=== PATIENT | female | born 1970 | race Caucasian/White ===

== ENCOUNTER 2016-11-06 07:09 | Emergency (ER) | payer OTHER ==
[2016-11-06 07:15] VITALS: BP 117/64
--- NOTE | 2016-11-06 07:26 | UC ---
Throat Pain/Nasal Gentry HPI - HPI Summary HPI Summary: ONSET OF ST, FATIGUE, SUBJECTIVE FEVER, SWOLLEN GLANDS YESTERDAY. ALSO REPORTS MILD COUGH AND CONGESTION. GRANDSON DX WITH MONO YESTERDAY. - History of Current Complaint Chief Complaint: UCGeneralIllness Stated Complaint: SORE THROAT Time Seen by Provider: 11/06/16 07:19 Hx Obtained From: Patient Hx Last Menstrual Period: 10/08/16 Onset/Duration: Gradual Onset, Lasting Hours, Still Present Severity: Moderate Pain Intensity: 6 Pain Scale Used: 0-10 Numeric Cough: Nonproductive Associated Signs & Symptoms: Positive: Nasal Discharge, Fever - Allergies/Home Medications Allergies/Adverse Reactions: Allergies Allergy/AdvReac Type Severity Reaction Status Date / Time No Known Allergies Allergy Verified 11/06/16 07:19 PMH/Surg Hx/FS Hx/Imm Hx Cardiovascular History: Hypertension - Surgical History Surgical History: Yes Surgery Procedure, Year, and Place: 8 surgeries to right knee - Family History Known Family History: Positive: Hypertension Family History: CANCER - SON - Social History Alcohol Use: Occasionally Substance Use Type: None Smoking Status (MU): Current Every Day Smoker Review of Systems Constitutional: Fever, Fatigue ENT: Sore Throat, Nasal Discharge Respiratory: Cough Cardiovascular: Negative Gastrointestinal: Negative Genitourinary: Negative Neurological: Headache All Other Systems Reviewed And Are Negative: Yes Physical Exam Triage Information Reviewed: Yes Appearance: No Pain Distress, Well-Nourished, Ill-Appearing - MILD Vital Signs: Initial Vital Signs Temp 97.1 F 11/06/16 07:11 Pulse 59 11/06/16 07:11 Resp 16 11/06/16 07:11 BP 117/64 11/06/16 07:11 Pulse Ox 99 11/06/16 07:11 Vital Signs Reviewed: Yes Eyes: Positive: Conjunctiva Clear ENT: Positive: Hearing grossly normal, Pharyngeal erythema, TMs normal. Negative: Tonsillar swelling, Tonsillar exudate, Muffled/hoarse voice Neck: Positive: Supple, Tenderness @ - SPFL CERVICAL LAD, Enlarged Nodes @ - SPFL CERVICAL LAD Respiratory Exam: Normal Cardiovascular Exam: Normal Abdomen Description: Positive: Soft Musculoskeletal: Positive: No Edema Neurological: Positive: Alert Psychological: Positive: Age Appropriate Behavior Skin: Negative: rashes Diagnostics - Laboratory Diagnostic Studies Completed/Ordered: RAPID STREP NEGATIVE Throat Pain/Nasal Course/Dx - Differential Dx/Diagnosis Provider Diagnoses: ACUTE PHARYNGITIS Discharge - Discharge Plan Condition: Stable Disposition: HOME Patient Education Materials: Pharyngitis (ED) Referrals: Dino Jean MD [Primary Care Provider] - If Needed Additional Instructions: RAPID STREP NEGATIVE. LIKELY VIRAL ETIOLOGY OF ILLNESS. REST, HYDRATE, OTC MEDS NEEDED FOR DISCOMFORT. SEEK FOLLOW-UP IF YOU ARE NOT IMPROVING EXPECTED.
== END 2016-11-06 07:48 | disposition home or self-care (01) ==
LOC: UCEAST 07:09
DX: J02.9 Acute pharyngitis, unspecified (principal); R05 Cough; R09.81 Nasal congestion; R51 Headache; I10 Essential (primary) hypertension; Z72.0 Tobacco use
CPT/HCPCS: 87651; 99211; G0463

== ENCOUNTER 2018-12-25 07:12 | Emergency (ER) | payer OTHER ==
[2018-12-25 07:30] VITALS: BP 159/97
--- NOTE | 2018-12-25 07:59 | UC ---
Skin Complaint HPI - HPI Summary HPI Summary: She woke up on Tuesday with a lump high and her left ear and on the back of her head. It was painful and tender and is giving her headache. She states that she has a colleague at work who has the same problem and is being treated for Lyme. She did have a tick on her right volar forearm about 2 weeks ago. She describes it as small and difficult to dig out. She did not have any rash and has not had any arthralgias, myalgias or fevers. - History of Current Complaint Chief Complaint: UCSkin Time Seen by Provider: 12/25/18 07:46 Stated Complaint: LUMP BEHIND EAR Hx Obtained From: Patient Hx Last Menstrual Period: 10/08/16 Onset/Duration: Sudden Onset Skin Exposure Onset/Duration: Days Ago Onset Severity: Moderate Current Severity: Severe Pain Intensity: 9 Location: Discrete - Left occipital area Aggravating Factor(s): Touch Alleviating Factor(s): Nothing Associated Signs & Symptoms: Positive: Negative Related History: Insect Bite/Sting - Allergy/Home Medications Allergies/Adverse Reactions: Allergies Allergy/AdvReac Type Severity Reaction Status Date / Time diazepam [From Valium] Allergy Altered Verified 12/25/18 07:31 Mental Status Home Medications: Home Medications Acetaminophen [Mapap] 500 mg PO SEE INSTRUCTIONS PRN 12/25/18 [History Confirmed 12/25/18] PMH/Surg Hx/FS Hx/Imm Hx Previously Healthy: Yes - Surgical History Surgical History: Yes Surgery Procedure, Year, and Place: 8 surgeries to right knee - Family History Known Family History: Positive: Hypertension Family History: CANCER - SON - Social History Alcohol Use: Occasionally Substance Use Type: None Smoking Status (MU): Current Every Day Smoker Review of Systems All Other Systems Reviewed And Are Negative: Yes Physical Exam - Summary Physical Exam Summary: She is tender in her left occiput. I don't really feel any lymphadenopathy. I don't see any rash. She has no meningeal signs. She is nontoxic in appearance with stable vitals. Triage Information Reviewed: Yes Appearance: Well-Appearing, Thin Vital Signs: Initial Vital Signs Temp 96.9 F 12/25/18 07:25 Pulse 69 12/25/18 07:25 Resp 18 12/25/18 07:25 BP 159/97 12/25/18 07:25 Pulse Ox 97 12/25/18 07:25 Vital Signs Reviewed: Yes ENT Exam: Other - Tender in the left occiput Neck exam: Normal Neck: Positive: Supple, No Lymphadenopathy. Negative: Nuchal Rigidity Course/Dx - Course Course Of Treatment: I have no idea if this is Lyme. Certainly not classic she would like to be treated for this. I am concerned about her headache if it is Lyme and recommended she follow up in the ED to consider lumbar puncture. We discussed doxycycline. She just wants to be treated with antibiotics at this time and does not want to go to the emergency department. - Diagnoses Provider Diagnosis: Head ache Discharge ED - Sign-Out/Discharge Documenting (check all that apply): Patient Departure All imaging exams completed and their final reports reviewed: No Studies - Discharge Plan Condition: Stable Disposition: HOME Patient Education Materials: Lyme Disease (ED), Acute Headache (ED) Referrals: Lloyd Correa MD [Primary Care Provider] - Additional Instructions: If her headache does not resolve in the next day or so please go to the emergency department for further evaluation. - Billing Disposition and Condition Condition: STABLE Disposition: Home
[2018-12-27 00:05] LABS: Anaplasma phagocytophilium <1:64 titer (<1:64); Ehrlichia chaffeensis IgG AB <1:64 titer (<1:64); Lyme Disease Serology Negative (Negative)
--- NOTE | 2018-12-27 07:34 | UC ---
- Progress Note Progress Note: Please advise patient that lab results show negative Lyme serology, and negative tick borne panel (Anaplasma, Babesia and Ehrlichiosis). Course/Dx - Diagnoses Provider Diagnoses: Head ache Discharge ED - Sign-Out/Discharge Documenting (check all that apply): Patient Departure All imaging exams completed and their final reports reviewed: No Studies - Discharge Plan Condition: Stable Disposition: HOME Prescriptions: DOXYcycline CAP(*) [DOXYcycline 100MG CAP(*)] 100 mg PO BID #[id number] cap Patient Education Materials: Lyme Disease (ED), Acute Headache (ED) Referrals: Lloyd Correa MD [Primary Care Provider] - Additional Instructions: If her headache does not resolve in the next day or so please go to the emergency department for further evaluation. - Billing Disposition and Condition Condition: STABLE Disposition: Home
== END 2018-12-25 08:14 | disposition home or self-care (01) ==
LOC: UCEAST 07:12
DX: R51 Headache (principal); H93.8X2 Other specified disorders of left ear; F17.200 Nicotine dependence, unspecified, uncomplicated; Z88.8 Allergy status to other drugs, medicaments and biological substances
CPT/HCPCS: 36415; 86618; 86666; 86753; 99212; G0463

== ENCOUNTER 2019-07-17 20:53 | Emergency (ER) | payer OTHER ==
[2019-07-17] MEDS ORDERED: Tetan/Diph/Pertus SYR(Tdap)* 0.5 ML SYR(BOOSTRIX) use SYR contains LATEX IM ONE (21:36)
[2019-07-17 22:30] VITALS: BP 162/98
== END 2019-07-17 22:30 | disposition home or self-care (01) ==
LOC: ED 20:53